=== PATIENT | female | born 1990 | race Caucasian/White ===

== ENCOUNTER 2017-03-18 08:15 | Emergency (ER) | payer OTHER ==
--- NOTE | 2017-03-18 09:16 | ED Physician Documentation ---
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 She checked the test twice at home when into the clinic at the [facility] and had a third test done. She has been 3 times previously she had one , 1 3-year-old alive and well and this . This morning she noted a dime size clot and when she went to the bathroom here at the emergency department she again noticed small stringy amounts of blood. She has not had cramping or pain. Review of Systems Constitutional: denies: Fever, Chills, Myalgias Eyes: denies: Decreased vision Ears: denies: Ear pain Nose: denies: Congestion Throat: denies: Sore throat Cardiac: denies: Chest pain / pressure Respiratory: denies: Dyspnea, Cough GI: denies: Abdominal Pain, Nausea, Vomiting : reports: Frequency, Vaginal bleeding. denies: Dysuria Skin: denies: Rash Musculoskeletal: denies: Neck pain, Back pain, Extremity pain Neurologic: denies: Generalized weakness, Focal weakness, Numbness PD PAST MEDICAL HISTORY - Past Medical History Past Medical History: No - Past Surgical History Past Surgical History: No - Present Medications Home Medications: Ambulatory Orders Medication Instructions Recorded Confirmed No Known Home Medications [No 03/18/17 03/18/17 Known Home Medications] - Allergies Allergies/Adverse Reactions: Allergies Allergy/AdvReac Type Severity Reaction Status Date / Time morphine Allergy Edema Verified 03/18/17 08:26 - Social History Does the pt smoke?: No Smoking Status: Never smoker PD ED PE NORMAL - Vitals Vital signs reviewed: Yes - General General: Alert and oriented X 3, No acute distress, Well developed/nourished - HEENT HEENT: Atraumatic, PERRL, EOMI - Neck Neck: Supple, no meningeal sign - Cardiac Cardiac: RRR, No murmur - Respiratory Respiratory: No respiratory distress, Clear bilaterally - Abdomen Abdomen: Soft - Back Back: No CVA TTP, No spinal TTP - Derm Derm: Normal color, Warm and dry, No rash - Extremities Extremities: No deformity, No edema - Neuro Neuro: No motor deficit, No sensory deficit - Psych Psych: Normal mood, Normal affect Results - Vitals Vitals: Vital Signs - 24 hr 03/18/17 03/18/17 03/18/17 08:24 08:27 09:31 Temperature 36.7 C 36.2 C L Heart Rate 62 65 Respiratory 18 16 12 Rate Blood Pressure 114/69 108/64 O2 Saturation 100 99 Oxygen O2 Source Room air - Labs Labs: Laboratory Tests 03/18/17 03/18/17 08:35 08:35 HCG, Quant 4.14 Urine Color LIGHT YELLOW Urine Clarity CLEAR Urine pH 6.0 Ur Specific [place] <=1.005 Urine Protein NEGATIVE Urine Glucose (UA) NEGATIVE Urine Ketones NEGATIVE Urine Occult Blood LARGE H Urine Nitrite NEGATIVE Urine Bilirubin NEGATIVE Urine Urobilinogen 0.2 (NORMAL) Ur Leukocyte Esterase NEGATIVE Urine RBC 0-5 Urine WBC 0-3 Ur Squamous Epith Cells MANY Squamous H Urine Bacteria Few Ur Microscopic Review INDICATED Urine Culture Comments NOT INDICATED Procedures - Bedside sono Bedside sono by EMP: With use of bedside ultrasound the pelvis is imaged and there is a 5 week intrauterine gestational sac present. PD MEDICAL DECISION MAKING - ED course Complexity details: reviewed results, re-evaluated patient, considered differential, d/w patient, d/w family ED course: 26-year-old female with first trimester bleeding passing small clots does have intrauterine on bedside ultrasound. I am concerned with the low hcG and have shared this with the patient. Likely represents early failure and I have asked her to repeat the test later this week. Departure - Departure Disposition: 01 Home, Self Care Clinical Impression: Threatened Condition: Stable Instructions: ED Miscarriage Poss Follow-Up: ANTWON Mae [Provider Group] Comments: Today it appears that there is a gestational sac in the uterus. Your quantitative hCG is low. Follow-up with your primary care doctor for repeat hCG within the next week. Discharge Date/Time: 03/18/17 10:17
[2017-03-18 09:35] VITALS: BP 108/64
[2017-03-18 09:49] LABS: BILIRUBIN,URINE NEGATIVE (NEGATIVE)
[2017-03-18 09:54] LABS: UA w/ MICROSCOPIC CHARGE YES
[2017-03-18 09:58] LABS: UR CULTURE IF IND NOT INDICATED; WBC,URINE 0-3 /HPF (0-5)
== END 2017-03-18 10:17 | disposition home or self-care (01) ==
LOC: ED 08:15
DX: O20.0 Threatened abortion (principal); Z3A.01 Less than 8 weeks gestation of pregnancy
CPT/HCPCS: 36415; 81001; 81003; 84702; 87086; 99283

== ENCOUNTER 2017-08-09 18:23 | Emergency (ER) | payer OTHER ==
--- NOTE | 2017-08-09 18:44 | ED Physician Documentation ---
PD HPI ABD PAIN - Stated complaint Stated Complaint: RT SIDE PX/16 WKS - Chief complaint Chief Complaint: Abd Pain - History obtained from History obtained from: Patient - History of Present Illness Timing - onset: Other ( at 16 weeks gestation with right upper quadrant/ right low chest pain for the last 3 weeks. The pattern of the is that it does not happen at night, usually happens at work about fpc through her shift. 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 It gets better if she stretches out or presses on it. There is no associated shortness of breath, lower abdominal pain, cramping, bleeding, nausea, fevers.) Review of Systems Constitutional: denies: Fever, Chills Throat: denies: Dental pain / toothache, Sore throat Cardiac: reports: Chest pain / pressure. denies: Palpitations, Pedal edema, Calf pain Respiratory: denies: Dyspnea, Cough PD PAST MEDICAL HISTORY - Past Surgical History Past Surgical History: No - Present Medications Home Medications: Ambulatory Orders Medication Instructions Recorded Confirmed Nitrofurantoin Monohyd/M-Cryst 1 tab PO BID 5 Days capsule 08/09/17 [Macrobid 100 mg Capsule] - Allergies Allergies/Adverse Reactions: Allergies Allergy/AdvReac Type Severity Reaction Status Date / Time morphine Allergy Edema Verified 03/18/17 08:26 - Social History Does the pt smoke?: No Smoking Status: Never smoker PD ED PE NORMAL - Vitals Vital signs reviewed: Yes - General General: Alert and oriented X 3, No acute distress - HEENT HEENT: PERRL, EOMI - Neck Neck: Supple, no meningeal sign, No bony TTP - Cardiac Cardiac: RRR, No murmur - Respiratory Respiratory: No respiratory distress, Clear bilaterally - Abdomen Abdomen: Non tender - Female Female : Other (Bedside ultrasound demonstrates single live intrauterine with a heart rate of 146.) - Extremities Extremities: No edema, No calf tenderness / cord - Neuro Neuro: Alert and oriented X 3, Normal speech Results - Vitals Vitals: Vital Signs - 24 hr 08/09/17 18:28 Temperature 36.9 C Heart Rate 72 Respiratory 16 Rate Blood Pressure 133/45 H O2 Saturation 100 Oxygen O2 Source Room air - Labs Labs: Laboratory Tests 08/09/17 08/09/17 08/09/17 18:45 18:45 18:48 WBC 7.6 RBC 3.66 L Hgb 11.4 L Hct 32.1 L MCV 87.9 MCH 31.2 H MCHC 35.4 RDW 12.6 Plt Count 243 MPV 7.1 L Neut # 5.5 Lymph # 1.6 [place] # 0.4 Eos # 0.1 Baso # 0.0 Absolute Nucleated RBC 0.00 Nucleated RBC % 0.0 D-Dimer 242.1 Sodium Potassium Chloride Carbon Dioxide Anion Gap BUN Creatinine Estimated GFR (MDRD) Glucose Calcium Total Bilirubin AST ALT Alkaline Phosphatase Total Protein Albumin Globulin Albumin/Globulin Ratio Lipase Urine Color YELLOW Urine Clarity CLEAR Urine pH 6.0 Ur Specific [place] 1.010 Urine Protein NEGATIVE Urine Glucose (UA) NEGATIVE Urine Ketones NEGATIVE Urine Occult Blood NEGATIVE Urine Nitrite NEGATIVE Urine Bilirubin NEGATIVE Urine Urobilinogen 0.2 (NORMAL) Ur Leukocyte Esterase TRACE H Urine RBC 0-5 Urine WBC 6-10 H Ur Squamous Epith Cells MANY Squamous H Urine Bacteria Moderate H Ur Microscopic Review INDICATED Urine Culture Comments NOT INDICATED 08/09/17 18:48 WBC RBC Hgb Hct MCV MCH MCHC RDW Plt Count MPV Neut # Lymph # [place] # Eos # Baso # Absolute Nucleated RBC Nucleated RBC % D-Dimer Sodium 135 Potassium 3.4 L Chloride 102 Carbon Dioxide 23 Anion Gap 10.0 BUN 7 Creatinine 0.4 Estimated GFR (MDRD) 190 Glucose 98 Calcium 9.0 Total Bilirubin 0.2 AST 17 ALT 13 Alkaline Phosphatase 46 Total Protein 7.1 Albumin 3.7 Globulin 3.4 Albumin/Globulin Ratio 1.1 Lipase 17 L Urine Color Urine Clarity Urine pH Ur Specific [place] Urine Protein Urine Glucose (UA) Urine Ketones Urine Occult Blood Urine Nitrite Urine Bilirubin Urine Urobilinogen Ur Leukocyte Esterase Urine RBC Urine WBC Ur Squamous Epith Cells Urine Bacteria Ur Microscopic Review Urine Culture Comments PD MEDICAL DECISION MAKING - ED course ED course: Right lower chest wall pain that does seem to be positional, likely musculoskeletal. This is specifically corroborated by the fact that it is worse during the day when she is leaning forward and better at night and better if she presses on it. She does have bacteriuria which I think is likely an incidental finding but should be treated given her state. Departure - Departure Disposition: 01 Home, Self Care Clinical Impression: Bacteria in urine, Chest wall pain Qualifiers: Weeks of gestation: 16 weeks Qualified Code(s): Z3A.16 - 16 weeks gestation of Condition: Good Record reviewed to determine appropriate education?: Yes Instructions: ED Strain Chest Wall Prescriptions: Nitrofurantoin Monohyd/M-Cryst [Macrobid 100 mg Capsule] 1 tab PO BID 5 Days capsule Comments: Call your doctor to arrange a follow-up appointment, make the next available appointment. In the interim, return anytime if worse or if new symptoms develop.
[2017-08-09 18:55] LABS: BASOPHILS % (AUTO) 0.2 %; EOSINOPHILS # (AUTO) 0.1 10^3/uL (0.0-0.7); EOSINOPHILS % (AUTO) 0.7 %; HGB - HEMOGLOBIN 11.4 g/dL (12.0-16.0); LYMPHOCYTES # (AUTO) 1.6 10^3/uL (1.5-3.5); LYMPHOCYTES % (AUTO) 21.7 %; MEAN CORPUSCULAR HEMOGLOBIN 31.2 pg (27.0-31.0); MEAN CORPUSCULAR HGB CONC 35.4 g/dL (32.0-36.0); MEAN CORPUSCULAR VOLUME 87.9 fL (81.0-99.0); MEAN PLATELET VOLUME 7.1 fL (7.9-10.8); MONOCYTES # (AUTO) 0.4 10^3/uL (0.0-1.0); MONOCYTES % (AUTO) 5.3 %; NEUTROPHILS # (AUTO) 5.5 10^3/uL (1.5-6.6); NEUTROPHILS % (AUTO) 72.1 %; PLT - PLATELET COUNT 243 10^3/uL (130-450); RED BLOOD COUNT 3.66 10^6/uL (4.20-5.40); RED CELL DISTRIBUTION WIDTH 12.6 % (12.0-15.0); WHITE BLOOD COUNT 7.6 x10^3/uL (4.8-10.8)
[2017-08-09 18:55] LABS: BILIRUBIN,URINE NEGATIVE (NEGATIVE); GLUCOSE, URINE (UA) NEGATIVE (NEGATIVE); KETONES,URINE (UA) NEGATIVE (NEGATIVE); LEUKOCYTE ESTERASE, URINE TRACE (NEGATIVE); NITRITE,URINE NEGATIVE (NEGATIVE); OCCULT BLOOD,URINE NEGATIVE (NEGATIVE); PROTEIN,URINE NEGATIVE (NEGATIVE); UROBILINOGEN,URINE 0.2 (NORMAL) E.U./dL (NORMAL)
[2017-08-09 18:57] LABS: CLARITY,URINE CLEAR (CLEAR)
[2017-08-09 19:05] LABS: BACTERIA,URINE Moderate /HPF (None Seen); RBC,URINE 0-5 /HPF (0-5); SQUAMOUS EPITHELIAL CELL,UR MANY Squamous (<= Few)
[2017-08-09 19:06] LABS: ALBUMIN 3.7 g/dL (3.2-5.5); ALBUMIN/GLOBULIN RATIO 1.1 (1.0-2.2); BILIRUBIN,TOTAL 0.2 mg/dL (0.2-1.0); CREATININE 0.4 mg/dL (0.4-1.0); TOTAL PROTEIN 7.1 g/dL (6.7-8.2)
[2017-08-09] MEDS ORDERED: NITROFURANTOIN MACRO 100 MG CAPSULE PO STA (19:43)
[2017-08-09 19:50] VITALS: BP 116/88
== END 2017-08-09 19:51 | disposition home or self-care (01) ==
LOC: ED 18:23
DX: O26.892 Other specified pregnancy related conditions, second trimester (principal); R82.71 Bacteriuria; R07.89 Other chest pain; Z3A.16 16 weeks gestation of pregnancy
CPT/HCPCS: 80053; 81001; 83690; 85025; 85379; 99283; A9270; 36415; 81003; 87086